=== PATIENT | female | born 1985 | race Hispanic/Latino ===

== ENCOUNTER 2018-04-13 01:36 | Emergency (ER) | payer BC ==
[2018-04-13 01:52] VITALS: BMI 21.2
[2018-04-13] MEDS ORDERED: DiphenhydrAMINE 50 mg/ml Inj IVP STA (02:01)
--- NOTE | 2018-04-13 02:03 | ED PDOC ---
HPI: Allergic Reaction Chief Complaint (Provider): Allergic Reaction History/Exam Limitations: no limitations Onset/Duration Of Symptoms: Hrs (one hour prior to prestation) Current Symptoms Are (Timing): Gone Now Possible Cause: Medication (pt took dose of zithromax) Associated Symptoms: Skin Rash, Redness. denies: Swelling, Dyspnea, Trouble Swallowing, Dizziness, Itching Home/EMS Treatment: None Severity: None <Melchor Voss - Last Filed: 04/13/18 03:30> <Roma Barajas - Last Filed: 04/13/18 07:00> Time Seen by Provider: 04/13/18 02:00 Chief Complaint (Nursing): Allergic Reaction Past Medical History Reviewed: Historical Data, Nursing Documentation, Vital Signs Vital Signs: Last Vital Signs Temp 97.4 F L 04/13/18 01:52 Pulse 70 04/13/18 01:52 Resp 18 04/13/18 01:52 BP 103/79 04/13/18 01:52 Pulse Ox 96 04/13/18 01:52 - Family History Family History: States: Unknown Family Hx <Melchor Voss - Last Filed: 04/13/18 03:30> Vital Signs: Last Vital Signs Temp 98.4 F 04/13/18 03:39 Pulse 95 H 04/13/18 03:39 Resp 16 04/13/18 03:39 BP 95/65 L 04/13/18 03:39 Pulse Ox 95 04/13/18 03:39 <Roma Barajas Y - Last Filed: 04/13/18 07:00> - Home Medications Home Medications: Ambulatory Orders Medication Instructions Recorded Oseltamivir Phosphate [Tamiflu] 75 mg PO BID #10 capsule 04/13/18 - Allergies Allergies/Adverse Reactions: Allergies Allergy/AdvReac Type Severity Reaction Status Date / Time Penicillins Allergy RASH Verified 04/13/18 01:52 Review of Systems ROS Statement: Except As Marked, All Systems Reviewed And Found Negative Skin: Positive for: Rash <Melchor Voss - Last Filed: 04/13/18 03:30> Physical Exam - Reviewed Nursing Documentation Reviewed: Yes Vital Signs Reviewed: Yes - Physical Exam Appears: Positive for: Well, Non-toxic, No Acute Distress. Negative for: Uncomfortable Head Exam: Positive for: ATRAUMATIC, NORMAL INSPECTION Skin: Positive for: Rash. Negative for: Normal Color, Warm, Dry, Diaphoresis, Pallor ENT: Positive for: Normal ENT Inspection, Pharynx Is (mildly erythematous), Pharyngeal Erythema, Tonsillar Swelling. Negative for: Tonsillar Exudate Neck: Positive for: Normal, Painless ROM, Supple. 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 <Melchor Voss - Last Filed: 04/13/18 03:30> - ECG O2 Sat by Pulse Oximetry: 96 <Melchor Voss - Last Filed: 04/13/18 03:30> Disposition - Patient ED Disposition Is Patient to be Admitted: No Doctor Will See Patient In The: Office Counseled Patient/Family Regarding: Studies Performed, Diagnosis, Need For Followup, Rx Given - Disposition Disposition: Routine/Home Disposition Time: 03:34 <Melchor Voss - Last Filed: 04/13/18 03:30> <Roma Barajas - Last Filed: 04/13/18 07:00> - Clinical Impression Clinical Impression: Influenza - Disposition Condition: STABLE Prescriptions: Oseltamivir Phosphate [Tamiflu] 75 mg PO BID #10 capsule Instructions: Flu, Flu, Adult (DC) Forms: [employer] ([place]ese), [facility] ED School/Work Excuse
[2018-04-13 03:40] VITALS: BP 95/65; PULSE 95; RESP 16; TEMP 98.4; O2SAT 95
[2018-04-13] MEDS ORDERED: Sodium Chloride 0.9% 1,000 ML IV ONE (10:00)
== END 2018-04-13 03:45 | disposition home or self-care (01) ==
LOC: H.ER 01:36
DX: T78.40XA Allergy, unspecified, initial encounter (principal); Z88.0 Allergy status to penicillin
CPT/HCPCS: 86308; 87070; 87430; 87804; 96361; 96374; 99283; J1200; J7030